=== PATIENT | female | born 1985 | race Caucasian/White ===

== ENCOUNTER 2019-09-20 10:25 | Emergency (ER) | payer BC ==
--- NOTE | 2019-09-20 11:02 | PDOC ---
History of Present Illness - General Chief Complaint: ,Possible Stated Complaint: , SPOTTING Time Seen by Provider: 09/20/19 10:41 History Source: Patient Exam Limitations: No Limitations - History of Present Illness Initial Comments: 09/20/19 10:57 34-year-old currently 12 weeks here today complaining of vaginal spotting. Patient states this is her first today she noticed some dark brownish blood after urinating denies any cramping has had intermittent vague cramps throughout the first trimester but nothing unusual today no nausea today no vomiting no other current complaints of pain no history of previous ectopic or miscarriage patient is currently followed by an old OB mileage clerk at [facility] has had a documented IUP this Past History - Past Medical History Allergies/Adverse Reactions: Allergies Allergy/AdvReac Type Severity Reaction Status Date / Time clindamycin Allergy Unknown Verified 09/20/19 10:43 Iodinated Contrast Media Allergy Unknown Verified 09/20/19 10:43 Sulfa (Sulfonamide Allergy Unknown Verified 09/20/19 10:43 Antibiotics) Home Medications: Ambulatory Orders Dexlansoprazole [Dexilant] 60 mg PO DAILY 09/20/19 Insulin Detemir [Levemir Flextouch] 15 unit SQ HS 09/20/19 Levothyroxine Sodium [Levoxyl] 175 mcg PO DAILY 09/20/19 Metformin HCl [Glucophage] 500 mg PO BID 09/20/19 Vit,Patrick 74/Iron/Folic [ Low Iron Tablet] 1 each PO DAILY 09/20/19 COPD: No Diabetes: Yes (INSULIN DEPENDENT) Thyroid Disease: Yes - Surgical History Appendectomy: Yes (AGE 19) Gastric Stapling: Yes (2017) - Reproductive History Is Patient Now?: Yes (#): 1 Para: 0 - Psycho Social/Smoking Cessation Hx Smoking History: Never smoked Hx Alcohol Use: Yes (NOT DURING THIS ) Drug/Substance Use Hx: No Review of Systems - Review of Systems Constitutional: No: Chills, Diaphoresis, Fever HEENTM: No: Eye Pain Respiratory: No: Cough, Orthopnea Cardiac (ROS): No: Chest Pain, Edema, Irregular Heart Rate ABD/GI: No: Rectal Bleeding, Vomiting : Yes: Other (vaginal spoting). No: Burning, Dysuria, Discharge Musculoskeletal: No: Back Pain Integumentary: No: Bruising All Other Systems: Reviewed and Negative *Physical Exam - Vital Signs Last Vital Signs Temp Pulse Resp BP Pulse Ox 98.7 F 70 18 120/73 100 09/20/19 10:41 09/20/19 10:41 09/20/19 10:41 09/20/19 10:41 09/20/19 10:41 - Physical Exam 09/20/19 11:00 Awake alert no acute distress lungs are clear bilaterally heart is regular without any murmurs rubs or gallops abdomen is soft nontender no CVA tenderness. Extremities are warm well perfused skin is warm and dry no rash neurologic patient is awake alert and oriented x3 ED Treatment Course - LABORATORY CBC & Chemistry Diagram: 09/20/19 10:50 09/20/19 10:50 Medical Decision Making - Medical Decision Making 09/20/19 11:00 34-year-old female G1, P0 12 weeks with vaginal spotting. Differential includes threatened versus incomplete AB versus breakthrough bleeding. Plan transabdominal ultrasound evaluate wellbeing basic labs and blood type for Rh status. Focus transabdominal ultrasound was performed showed a live intrauterine heart rate was noted to be 150 bpm Plan been pending Rh status will DC home follow-up with RAMP SERVICE MAN told nothing per vagina until bleeding stops 09/22/19 07:55 blood type is a positive. Discharge - Discharge Information Problems reviewed: Yes Clinical Impression/Diagnosis: Threatened Condition: Improved Disposition: HOME - Admission No - Follow up/Referral Referrals: Amaris Hankins MD [Primary Care Provider] - Gerardo Wolf MD [Staff Physician] - - Patient Discharge Instructions Patient Printed Discharge Instructions: Threatened Additional Instructions: Please return for any worsening symptoms or concerns. Follow-up with your OB mileage clerk next week call to schedule. Nothing per vagina until the bleeding stops. Your ultrasound today shows that you have a live fetus in the uterus with a normal heart rate - Post Discharge Activity
[2019-09-20 11:16] LABS: BASO % 0.2 % (0-2.0); EOS % 0.7 % (0-4.5); HEMATOCRIT 33.4 % (32.4-45.2); HEMOGLOBIN 10.8 GM/dl (10.7-15.3); LYMPH % 24.2 % (8-40); MCH 24.1 pg (25.7-33.7); MCHC 32.2 g/dl (32.0-36.0); MEAN CELL VOLUME 74.8 fl (80-96); MEAN PLT VOLUME 9.8 fl (7.5-11.1); MONO % 5.4 % (3.8-10.2); NEUT % 69.5 % (42.8-82.8); PLATELET COUNT 280 K/MM3 (134-434); RBC 4.47 M/mm3 (3.60-5.2); RDW 16.7 % (11.6-15.6); WHITE BLOOD COUNT 10.7 K/mm3 (4.0-10.8)
[2019-09-20 11:22] VITALS: BP 120/73; PULSE 70; TEMP 98.7; BMI 40.1
[2019-09-20 11:25] LABS: ADD RBC MORPHOLOGY YES; ALBUMIN 3.4 g/dl (3.4-5.0); BILIRUBIN,TOTAL 0.1 mg/dl (0.2-1); CALCIUM 8.5 mg/dl (8.5-10); CREATININE 0.4 mg/dl (0.55-1.3); POTASSIUM 3.5 mmol/L (3.5-5.1); TOT PROT 6.8 g/dl (6.4-8.2)
[2019-09-20 12:01] LABS: EPITHELIAL CELLS FEW /hpf
[2019-09-20 12:03] LABS: ANISOCYTOSIS 1+
[2019-09-20 12:04] LABS: PLATELET ESTIMATE ADEQUATE
== END 2019-09-20 11:37 | disposition home or self-care (01) ==
LOC: FER 10:25
DX: O26.891 Other specified pregnancy related conditions, first trimester (principal); Z3A.12 12 weeks gestation of pregnancy; O20.0 Threatened abortion; Z88.8 Allergy status to other drugs, medicaments and biological substances; Z88.2 Allergy status to sulfonamides; Z91.041 Radiographic dye allergy status; E11.9 Type 2 diabetes mellitus without complications; E07.9 Disorder of thyroid, unspecified
CPT/HCPCS: 36415; 76815; 80053; 81003; 81015; 85025; 86850; 86900; 86901; 99283-25

== ENCOUNTER 2020-03-26 06:10 | Inpatient (IN) | payer BC ==
[2020-03-26] MEDS ORDERED: morphine SULFATE/PF 0.5 MG/ML (2cc Syringe - QUVA) ONE (08:09)
[2020-03-26] MEDS ORDERED: CITRIC ACID/SODIUM CITRATE 30 ML UNIT-DOSE CUP PO ONE ×2 (08:10)
[2020-03-26] MEDS ORDERED: ELECTROLYTE-148 SOLN 1,000 ML IV SCH (08:15)
--- NOTE | 2020-03-26 08:18 | HP ---
Past Medical History - Admission Chief Complaint: Elective History of Present Illness: 34 yo , @ 39 weeks gestation with Pre-gestational diabetes, is pre op for primary . EDC 04/12/20 She denies any contractions pain nor vaginal bleeding. History Source: Patient Limitations to Obtaining History: No Limitations - Past Medical History ...: 1 ...Para: 0 ...EDC by Sono: 04/02/20 Endocrine: Yes: Diabetes Mellitus Additional Medical History: Obesity - Past Surgical History Past Surgical History: Yes: None Hx Myomectomy: No Hx Transabdominal Cerclage: No - Smoking History Smoking history: Never smoked - Alcohol/Substance Use Hx Alcohol Use: Yes (NOT DURING THIS ) History of Substance Use: reports: None - Social History ADL: Independent History of Recent Travel: No Home Medications - Allergies Allergies/Adverse Reactions: Allergies Allergy/AdvReac Type Severity Reaction Status Date / Time clindamycin Allergy Severe Verified 03/12/20 09:01 Iodinated Contrast Media Allergy Severe Verified 03/12/20 09:01 Sulfa (Sulfonamide Allergy Severe Swelling Verified 03/12/20 09:01 Antibiotics) - Home Medications Home Medications: Ambulatory Orders Dexlansoprazole [Dexilant] 60 mg PO DAILY 09/20/19 Insulin Detemir [Levemir Flextouch] 15 unit SQ HS 09/20/19 Levothyroxine Sodium [Levoxyl] 175 mcg PO DAILY 09/20/19 Metformin HCl [Glucophage] 500 mg PO BID 09/20/19 Vit,Patrick 74/Iron/Folic [ Low Iron Tablet] 1 each PO DAILY 09/20/19 Review of Systems - Review of Systems Constitutional: reports: No Symptoms Neck: reports: No Symptoms Cardiovascular: reports: No Symptoms Respiratory: reports: No Symptoms Gastrointestinal: reports: No Symptoms Genitourinary: reports: No Symptoms Breasts: reports: No Symptoms Reported Musculoskeletal: reports: No Symptoms Integumentary: reports: No Symptoms Neurological: reports: No Symptoms Psychiatric: reports: No Symptoms Pain Intensity: 0 Physical Exam - Maternity Constitutional: Yes: No Distress Eyes: Yes: Conjunctiva Clear Neck: Yes: Supple Cardiovascular: Yes: Regular Rate and Rhythm Lungs: Clear to auscultation Breast(s): Yes: WNL - Abdominal Exam/OB Number of Fetuses: Single Presentation: Vertex Contractions: No - Physical Exam Integumentary: Yes: WNL ...Motor Strength: WNL Psychiatric: Yes: Alert, Oriented Problem List - Problems (1) Obesity Code(s): E66.9 - OBESITY, UNSPECIFIED (2) 39 weeks gestation of Code(s): Z3A.39 - 39 WEEKS GESTATION OF (3) Previous gestational diabetes mellitus, antepartum Code(s): O09.299 - SUPRVSN OF PREG W POOR REPRODCTV OR OBSTET HISTORY, UNSP TRI; Z86.32 - PERSONAL HISTORY OF GESTATIONAL DIABETES Assessment/Plan 39 weeks gestation Pre-Gestational diabetes Pre op for primary Consent signed Anesthesia to see patient
[2020-03-26 08:20] VITALS: BMI 46.5
[2020-03-26] MEDS ORDERED: ceFAZolin SODIUM 1 GM VIAL ONE (08:43)
[2020-03-26] MEDS ORDERED: OXYTOCIN 10 UNITS/ML VIAL ONE (08:53)
[2020-03-26] MEDS ORDERED: METHYLERGONOVINE MALEATE 0.2 MG/1 ML AMP IM PRN (09:39)
--- NOTE | 2020-03-26 09:43 | OP ---
Operative Note - Note: Operative Date: 03/26/20 Pre-Operative Diagnosis: 39 weeks gestation / Breech presentation / Pregestational diabetes Operation: Primary Low Transverse Findings: Baby Girl in Left sacrum anterior Post-Operative Diagnosis: Same as Pre-op Surgeon: Amaris Hankins White Spooler: Lawrence Espinoza Anesthesia: Spinal Specimens Removed: Placenta Estimated Blood Loss (mls): 700
[2020-03-26 09:55] LABS: CORD HCO3 25.8 mmHg (20-29); CORD PCO2 69.9 mmHg (30-78); CORD pH 7.185 (7.14-7.44)
[2020-03-26 10:00] LABS: CORD HCO3 23.8 mmHg (20-29); CORD PCO2 73.9 mmHg (30-78); CORD pH 7.126 (7.14-7.44)
[2020-03-26] MEDS: FERROUS SO4 325 MG TABLET (FP) PO SCH ×2 (10:33→16:31)
[2020-03-26] MEDS: IBUPROFEN 800 MG/8 ML IJ IVPB PRN (11:14)
[2020-03-26] MEDS: PRENATAL VITAMINS W/ FOLIC ACID TABLET (FP) PO SCH (11:16)
[2020-03-26] MEDS ORDERED: IBUPROFEN 800 MG/8 ML IJ IVPB ONE (11:18)
[2020-03-26] MEDS ORDERED: OXYTOCIN 20 UNITS in 0.9% NS 20 UNIT/1,000 ML INFUS.BAG IV ONE (11:50)
[2020-03-26] MEDS ORDERED: ONDANSETRON 4 MG/2 ML VIAL IVPUSH PRN (16:18)
[2020-03-26] MEDS: OXYTOCIN 20 UNITS in 0.9% NS 20 UNIT/1,000 ML INFUS.BAG IV SCH (22:00)
[2020-03-26] MEDS: INSULIN (LEVEMIR) 100 UNITS/ML UNITS SQ SCH (23:35)
[2020-03-27] MEDS: IBUPROFEN 800 MG/8 ML IJ IVPB PRN ×2 (04:41→12:29)
[2020-03-27] MEDS: LEVOTHYROXINE 25 MCG, LEVOTHYROXINE 150 MCG PO SCH (06:39)
[2020-03-27] MEDS ORDERED: LEVOTHYROXINE NA 150 MCG TABLET PO SCH (07:00)
--- NOTE | 2020-03-27 08:02 | PN ---
Post Note - Post Date of Delivery: 03/26/20 Vital Signs: Vital Signs - 24 hr 03/26/20 03/26/20 03/26/20 09:55 10:10 10:25 Temperature 97.7 F Pulse Rate 69 72 72 Respiratory 16 18 16 Rate Blood Pressure 109/61 108/60 120/58 L O2 Sat by Pulse 100 98 98 Oximetry (%) 03/26/20 03/26/20 03/26/20 10:40 16:00 17:00 Temperature 97.7 F Pulse Rate 77 Respiratory 18 20 20 Rate Blood Pressure 110/55 L O2 Sat by Pulse 96 Oximetry (%) 03/26/20 03/26/20 03/26/20 17:23 17:34 18:00 Temperature 98.2 F Pulse Rate 73 Respiratory 18 20 20 Rate Blood Pressure 92/59 L O2 Sat by Pulse 98 Oximetry (%) 03/26/20 03/26/20 03/26/20 19:00 20:00 21:00 Temperature Pulse Rate Respiratory 20 20 20 Rate Blood Pressure O2 Sat by Pulse Oximetry (%) 03/26/20 03/26/20 03/26/20 21:23 22:00 23:00 Temperature 97.9 F Pulse Rate 85 Respiratory 18 20 20 Rate Blood Pressure 111/49 L O2 Sat by Pulse 95 Oximetry (%) 03/27/20 03/27/20 03/27/20 00:00 01:00 02:00 Temperature 98.4 F Pulse Rate 89 Respiratory 20 20 20 Rate Blood Pressure 88/37 L O2 Sat by Pulse 98 Oximetry (%) 03/27/20 03/27/20 03/27/20 03:00 04:00 05:00 Temperature 98.1 F Pulse Rate 83 Respiratory 20 20 18 Rate Blood Pressure 115/44 L O2 Sat by Pulse 95 Oximetry (%) 03/27/20 03/27/20 06:00 07:00 Temperature Pulse Rate Respiratory 20 20 Rate Blood Pressure O2 Sat by Pulse Oximetry (%) Labs: Laboratory Results - last 24 hr 03/26/20 03/26/20 03/26/20 09:10 09:10 11:00 Cord Blood pH 7.185 7.126 L Cord Blood PCO2 69.9 73.9 Cord Blood PO2 < 15.0 < 15.0 Cord Blood HCO3 25.8 23.8 Cord Base Excess -4.400 L -7.100 L POC Glucometer 97 03/26/20 03/26/20 03/26/20 14:36 17:21 22:30 Cord Blood pH Cord Blood PCO2 Cord Blood PO2 Cord Blood HCO3 Cord Base Excess POC Glucometer 80 73 76 03/27/20 03/27/20 01:43 06:29 Cord Blood pH Cord Blood PCO2 Cord Blood PO2 Cord Blood HCO3 Cord Base Excess POC Glucometer 98 71 - Objective Afebrile: Yes Breast: Not engorged Abdomen: Soft, Non-tender Uterus: Fundus firm Vagina: Scant lochia Extremities: Non-tender - Assessment/Plan (1) Status post primary low transverse section Assessment: Other (POD1) Plan: Routine Care
[2020-03-27] MEDS: FERROUS SO4 325 MG TABLET (FP) PO SCH ×2 (08:25→17:47)
[2020-03-27] MEDS: OXYTOCIN 20 UNITS in 0.9% NS 20 UNIT/1,000 ML INFUS.BAG IV SCH ×2 (08:35→09:45)
[2020-03-27 08:54] LABS: BASO % 0.1 % (0-2.0); HEMATOCRIT 25.5 % (32.4-45.2); LYMPH % 16.1 % (8-40); MCH 23.3 pg (25.7-33.7); MCHC 31.2 g/dl (32.0-36.0); MEAN CELL VOLUME 74.8 fl (80-96); MEAN PLT VOLUME 9.7 fl (7.5-11.1); MONO % 8.8 % (3.8-10.2); PLATELET COUNT 165 K/MM3 (134-434); RBC 3.41 M/mm3 (3.60-5.2); RDW 17.8 % (11.6-15.6); WHITE BLOOD COUNT 11.5 K/mm3 (4.0-10.0)
[2020-03-27] MEDS: DEXILANT 60 MG PO SCH (09:01)
[2020-03-27] MEDS: PRENATAL VITAMINS W/ FOLIC ACID TABLET (FP) PO SCH (09:05)
[2020-03-27] MEDS ORDERED: BISACODYL 10 MG SUPP.RECT RC PRN (09:39)
[2020-03-27] MEDS ORDERED: DIPHTH,PERTUSS(ACELL),TET 0.5 ML DISP.SYRIN IM ONE (10:00)
[2020-03-27] MEDS ORDERED: DEXAMETHASONE 4 MG TABLET (FP) PO SCH (10:00)
--- NOTE | 2020-03-27 10:56 | PN ---
Progress Note (short form) - Note Progress Note: Anesthesiologist post op note POD#1 S/P under spinal with duramorph. VSS. Ambulating. Tolerating po. Pain under control, scale 2-3/10. No apparent post anesthesia complications.
--- NOTE | 2020-03-27 13:16 | OP ---
DATE OF OPERATION: 03/26/2020 PREOPERATIVE DIAGNOSIS: Thirty-nine weeks' gestation, pre-gestational diabetes, and breech presentation. POSTOPERATIVE DIAGNOSIS: Thirty-nine weeks' gestation, pre-gestational diabetes, and breech presentation. PROCEDURE: Primary low transverse section. SURGEON: Amaris Hankins MD TIRE ROOM SUPERVISOR: ANN MARIE Mc ANESTHESIA: Spinal. COMPLICATIONS: None. ESTIMATED BLOOD LOSS: 700 mL. DESCRIPTION OF PROCEDURE: Patient was taken to the operating room where spinal anesthesia was administered. Patient was then prepped and draped in proper sterile fashion. A Pfannenstiel skin incision was made and carried down through the underlying layer of fascia. The fascia was incised in the midline and extended laterally. The inferior aspect of the fascial incision was then grasped with a Miriam clamp, elevated, and the rectus muscles dissected off bluntly. Attention was then turned to the superior aspect of the fascial incision, which in a similar fashion was then grasped with a Miriam clamp, elevated, and the rectus muscle dissected off bluntly. The rectus muscle was then in the midline, the peritoneum identified and entered sharply with Metzenbaum scissors. This incision was extended superiorly and inferiorly with good visualization of the bladder. The vesicouterine peritoneum was then grasped with a pickup and entered sharply with the Metzenbaum scissors. This incision was extended laterally and a bladder flap created digitally. Then the bladder blade was inserted. The lower uterine segment was incised using a 10 blade. This incision was extended laterally. The sacrum was presented at the incision with double footling breech. The lower extremities were then delivered, then a dry lap was placed around the hip of the fetus, and the baby was turned on each side to allow delivery of the head. Nose and mouth were suctioned and the cord clamped and cut. The was handed to the waiting business development recruiter. The placenta was removed manually, then the lower uterine segment was repaired using 0 Biosyn in a running locked fashion while the uterus remained inside. A second layer of the same suture was used as a means to provide excellent hemostasis. Then the vesicouterine peritoneum was sutured together. The pelvis was then completely irrigated, and the peritoneum was closed using 2-0 Biosyn, and the fascia was reapproximated using 0 Vicryl in a running fashion, and the skin was closed in subcuticular fashion using 3-0 Vicryl. Patient tolerated procedure well. Patient was then taken to PACU in stable condition. PATHOLOGY: Placenta. Jaun OSUNA/[id number]
[2020-03-27] MEDS: SIMETHICONE 80 MG TAB.CHEW (FP) PO PRN (20:08)
[2020-03-27] MEDS: IBUPROFEN 600 MG TABLET (FP) PO PRN (20:09)
[2020-03-27] MEDS: oxyCODONE HCL 5 MG TABLET PO PRN (20:09)
[2020-03-27] MEDS: INSULIN (LEVEMIR) 100 UNITS/ML UNITS SQ SCH (22:47)
[2020-03-28] MEDS: IBUPROFEN 600 MG TABLET (FP) PO PRN ×4 (06:49→23:57)
[2020-03-28] MEDS: SIMETHICONE 80 MG TAB.CHEW (FP) PO PRN ×3 (06:49→19:26)
[2020-03-28] MEDS: oxyCODONE HCL 5 MG TABLET PO PRN ×4 (06:50→23:57)
[2020-03-28] MEDS: LEVOTHYROXINE 25 MCG, LEVOTHYROXINE 150 MCG PO SCH (06:51)
[2020-03-28] MEDS: FERROUS SO4 325 MG TABLET (FP) PO SCH ×2 (08:25→18:30)
[2020-03-28] MEDS: PRENATAL VITAMINS W/ FOLIC ACID TABLET (FP) PO SCH (10:28)
[2020-03-28] MEDS: DEXILANT 60 MG PO SCH (10:29)
--- NOTE | 2020-03-28 15:36 | PN ---
Post Progress Note - Subjective Subjective: 34 yo Para 1 status post primary Low Transverse , seen and evaluated She c/o incision pain. Post Day: 2 Type of Delivery: Primary C/S Vital Signs: Vital Signs Temperature 97.9 F 03/28/20 09:00 Pulse Rate 86 03/28/20 09:00 Respiratory Rate 20 03/28/20 09:00 Blood Pressure 124/59 L 03/28/20 09:00 O2 Sat by Pulse Oximetry (%) 98 03/27/20 18:07 Breast Exam: Yes: Soft Uterus: Yes: Fundus below umbilicus Incision: Yes: Other (Steri strips in place) Abdomen/GI: Yes: Abdomen soft, Tolerating PO Lochia: Yes: Rubra Lochia, amount: Small Extremities: Yes: Calves non-tender Activity: Ambulating - Labs Labs: CBC WBC 11.5 K/mm3 (4.0-10.0) H 03/27/20 08:02 RBC 3.41 M/mm3 (3.60-5.2) L 03/27/20 08:02 Hgb 8.0 GM/dL (10.7-15.3) L 03/27/20 08:02 Hct 25.5 % (32.4-45.2) L D 03/27/20 08:02 MCV 74.8 fl (80-96) L 03/27/20 08:02 MCH 23.3 pg (25.7-33.7) L 03/27/20 08:02 MCHC 31.2 g/dl (32.0-36.0) L 03/27/20 08:02 RDW 17.8 % (11.6-15.6) H 03/27/20 08:02 Plt Count 165 K/MM3 (134-434) D 03/27/20 08:02 MPV 9.7 fl (7.5-11.1) 03/27/20 08:02 Absolute Neuts (auto) 8.5 K/mm3 (1.5-8.0) H 03/27/20 08:02 Neutrophils % 74.0 % (42.8-82.8) 03/27/20 08:02 Lymphocytes % 16.1 % (8-40) 03/27/20 08:02 Monocytes % 8.8 % (3.8-10.2) 03/27/20 08:02 Eosinophils % 1.0 % (0-4.5) 03/27/20 08:02 Basophils % 0.1 % (0-2.0) 03/27/20 08:02 Nucleated RBC % 0 % (0-0) 03/27/20 08:02 Problem List - Problems (1) Obesity Problems reviewed: Yes Code(s): E66.9 - OBESITY, UNSPECIFIED (2) 39 weeks gestation of Code(s): Z3A.39 - 39 WEEKS GESTATION OF (3) Previous gestational diabetes mellitus, antepartum Code(s): O09.299 - SUPRVSN OF PREG W POOR REPRODCTV OR OBSTET HISTORY, UNSP TRI; Z86.32 - PERSONAL HISTORY OF GESTATIONAL DIABETES Assessment/Plan Status post primary Low Transverse Ambulation Analgesia as needed Continue post op care
[2020-03-28] MEDS: INSULIN (LEVEMIR) 100 UNITS/ML UNITS SQ SCH (22:08)
[2020-03-29] MEDS: LEVOTHYROXINE 25 MCG, LEVOTHYROXINE 150 MCG PO SCH (06:15)
[2020-03-29] MEDS: FERROUS SO4 325 MG TABLET (FP) PO SCH (08:22)
[2020-03-29] MEDS: IBUPROFEN 600 MG TABLET (FP) PO PRN (08:25)
[2020-03-29 08:30] LABS: BASO % 0.4 % (0-2.0); EOS % 1.8 % (0-4.5); HEMATOCRIT 25.2 % (32.4-45.2); LYMPH % 31.5 % (8-40); MCH 23.6 pg (25.7-33.7); MCHC 31.7 g/dl (32.0-36.0); MEAN CELL VOLUME 74.4 fl (80-96); MEAN PLT VOLUME 9.5 fl (7.5-11.1); MONO % 8.5 % (3.8-10.2); NEUT % 57.8 % (42.8-82.8); PLATELET COUNT 194 K/MM3 (134-434); RBC 3.39 M/mm3 (3.60-5.2); WHITE BLOOD COUNT 8.1 K/mm3 (4.0-10.0)
--- NOTE | 2020-03-29 10:35 | DS ---
Physical Exam-MICA MACHINE OPERATOR Vital Signs: Vital Signs Temperature 97.9 F 03/28/20 22:00 Pulse Rate 99 H 03/28/20 22:00 Respiratory Rate 19 03/28/20 22:00 Blood Pressure 132/74 03/28/20 22:00 O2 Sat by Pulse Oximetry (%) 99 03/28/20 22:00 Constitutional: Yes: No Distress Eyes: Yes: Conjunctiva Clear HENT: Yes: Atraumatic Neck: Yes: Supple Cardiovascular: Yes: Regular Rate and Rhythm Respiratory: Yes: Regular Gastrointestinal: Yes: Normal Bowel Sounds Pelvis: Yes: WNL External Genitalia: Yes: Normal Extremities: Yes: WNL Wound/Incision: Yes: Steri Strips (in place) Neurological: Yes: Alert, Oriented ...Motor Strength: WNL Psychiatric: Yes: Alert, Oriented Labs: CBC, BMP 03/29/20 07:25 Delivery - Delivery Type of Anesthesia: Spinal Episiotomy/Laceration: None EBL (cc): 700 Delivery, Single - Stages of Labor Date of Delivery: 03/26/20 Time of Delivery: 08:56 Time Placenta Delivered: 08:57 - Condition of Infant Checkout Operator/Kettle Firer Present: Yes Name: Sully Borrero Gender: Female Weight: 8 lb 12 oz Position: Left, SA Total Hours ROM (Hrs/Mins): 2 MIN - 1 Minute Total Score: 6 5 Minutes Total Score: 9 - [place] Feeding Plan Initial Plan: Elected not to breastfeed exclusively throughout hospitalization Discharge Summary Problems reviewed: Yes Reason For Visit: SCHEDULED Current Active Problems 39 weeks gestation of (Acute) Obesity (Acute) Previous gestational diabetes mellitus, antepartum (Acute) Status post primary low transverse section (Acute) Procedures: Principal: Primary Low Transverse Hospital Course: Routine post op care Health Concerns: Thromboembolic event Plan of Treatment: Ambulation Analgesia as needed F/U with MD in one week Goals: Resume regular activities in 4 weeks Condition: Good - Instructions Diet, Activity, Other Instructions: Diabetic diet No driving, no lifting x 4 weeks F/U with MD in one week Disposition: HOME - Home Medications Comprehensive Discharge Medication List: Ambulatory Orders Dexlansoprazole [Dexilant] 60 mg PO DAILY 09/20/19 Insulin Detemir [Levemir Flextouch] 40 unit SQ HS 09/20/19 Levothyroxine Sodium [Levoxyl] 175 mcg PO DAILY 09/20/19 Metformin HCl [Glucophage] 500 mg PO BID 09/20/19 Vit,Patrick 74/Iron/Folic [ Low Iron Tablet] 1 each PO DAILY 09/20/19
[2020-03-29] MEDS: DEXILANT 60 MG PO SCH (10:37)
[2020-03-29] MEDS: PRENATAL VITAMINS W/ FOLIC ACID TABLET (FP) PO SCH (10:38)
[2020-03-29 11:57] VITALS: BP 130/73; PULSE 82; TEMP 98.2
--- NOTE | 2020-04-05 17:46 | PATH ---
Surgical Pathology Report Patient Name: AILEEN PRABHAKAR Med. Rec. #: [id number] /Age/Gender: 1985 (Age: 34) / F Account: [id number] Location: [facility] OBS/RAW PRODUCTS DIRECTOR Taken: 03/26/2020 Received: 03/29/2020 Reported: 04/05/2020 Physicians: Amaris Hankins M.D. Specimen(s) Received PLACENTA Clinical History Type 2 diabetes Previous surgery: appendectomy, gastric sleeve 2015 Final Diagnosis PLACENTA: THIRD TRIMESTER PLACENTA WITH FOCAL SUBCHORIONIC FIBRIN DEPOSITION. TRIVASCULAR CORD. MEMBRANES WITH NO DIAGNOSTIC ABNORMALITIES. Electronically Signed Horacio Louis M.D. Gross Description The specimen is received fresh labeled placenta and is a 611 gram, 26.5 x17 x 1.5cm. placenta with attached membranes and umbilical cord. The attached membranes are glistening, translucent, and insert marginally. The umbilical cord measures 32 cm. in length and averages 1.3 cm. in diameter. The cord inserts eccentrically, 4 centimeter to the nearest margin. No true knots or strictures are identified. Cut surface of the umbilical cord reveals 3 vessels. Sectioning reveals red-brown, spongy parenchyma. No lesions are identified. Behavioral Services Tech sections are submitted in three cassettes as follows: 1- membrane rolls and umbilical cord; 2-3- full thickness sections of placenta KWS/03/30/2020 sulki03/30/2020
== END 2020-03-29 13:10 | disposition home or self-care (01) | DRG 787 ==
LOC: JLDR 06:10 → J3W 13:45
PROVIDERS: ADMIT Obstetrics & Gynecology; ATTEND Obstetrics & Gynecology
PROC: 10D00Z1 Extraction of Products of Conception, Low, Open Approach (ICD-10-PCS; principal; 2020-03-26)
DX: O82 Encounter for cesarean delivery without indication (principal); O24.113 Pre-existing type 2 diabetes mellitus, in pregnancy, third trimester; Z3A.39 39 weeks gestation of pregnancy; Z37.0 Single live birth; Z79.4 Long term (current) use of insulin; O32.8XX0 Maternal care for other malpresentation of fetus, not applicable or unspecified; O99.214 Obesity complicating childbirth; E66.01 Morbid (severe) obesity due to excess calories; O99.284 Endocrine, nutritional and metabolic diseases complicating childbirth; E03.9 Hypothyroidism, unspecified; Z86.19 Personal history of other infectious and parasitic diseases; Z88.1 Allergy status to other antibiotic agents; Z88.2 Allergy status to sulfonamides; Z91.041 Radiographic dye allergy status
CPT/HCPCS: 36415; 36600; 82803; 82962; 85025; 88307-TC; 90715

== ENCOUNTER 2022-02-18 11:17 | Emergency (ER) | payer BC ==
[2022-02-18 11:32] VITALS: BP 111/72; PULSE 82; RESP 18; TEMP 98.1; BMI 42.3
[2022-02-18] MEDS ORDERED: ACETAMINOPHEN 1000 MG/100 ML BAG IVPB ONE (13:01)
[2022-02-18] MEDS ORDERED: ONDANSETRON 4 MG/2 ML VIAL IVPUSH ONE (13:01)
[2022-02-18] MEDS ORDERED: SODIUM CHLORIDE 1,000 ML IV STA (13:01)
[2022-02-18] MEDS ORDERED: ONDANSETRON 4 MG/2 ML VIAL ONE (13:47)
[2022-02-18] MEDS ORDERED: ACETAMINOPHEN INJECTION 100 ML IVPB ONE (13:47)
[2022-02-18 14:24] LABS: BASO % 0.4 % (0-2.0); EOS % 0.3 % (0-4.5); HEMATOCRIT 38.8 % (32.4-45.2); HEMOGLOBIN 12.5 GM/dL (10.7-15.3); LYMPH % 12.2 % (8-40); MCH 24.2 pg (25.7-33.7); MCHC 32.2 g/dl (32.0-36.0); MEAN CELL VOLUME 75.1 fl (80-96); MEAN PLT VOLUME 9.2 fl (7.5-11.1); MONO % 5.8 % (3.8-10.2); NEUT % 81.3 % (42.8-82.8); PLATELET COUNT 262 10^3/uL (134-434); RBC 5.17 M/mm3 (3.60-5.2); RDW 16.4 % (11.6-15.6); WHITE BLOOD COUNT 15.5 K/mm3 (4.0-10.0)
[2022-02-18 14:29] LABS: EPI CELLS 10 /uL (0-25.1); HYALINE CASTS 1 /uL (0-3.1); URINE APPEARANCE CLEAR; URINE BACTERIA 130 /uL (0-1359); URINE BILIRUBIN NEGATIVE (NEGATIVE); URINE COLOR YELLOW; URINE GLUCOSE (UA) NEGATIVE (NEGATIVE); URINE KETONE TRACE (NEGATIVE); URINE LEUK ESTERASE NEGATIVE (NEGATIVE); URINE NITRITE NEGATIVE (NEGATIVE); URINE PROTEIN NEGATIVE (NEGATIVE); URINE RBC 14 /uL (0-23.9); URINE UROBILINOGEN 0.2 mg/dL (0.2-1.0); URINE WBC 5 /uL (0-25.8)
[2022-02-18 14:30] LABS: HCG,QUALITATIVE URINE Negative
[2022-02-18 14:49] LABS: CALCIUM 9.3 mg/dL (8.5-10.1)
[2022-02-18 14:50] LABS: ALBUMIN 3.7 g/dl (3.4-5.0); BLOOD UREA NITROGEN 8.6 mg/dL (7-18)
[2022-02-18 14:52] LABS: CREATININE 0.5 mg/dL (0.55-1.3)
[2022-02-18 14:54] LABS: BILIRUBIN,TOTAL 0.3 mg/dL (0.2-1)
== END 2022-02-18 20:50 | disposition home or self-care (01) ==
LOC: JER 11:17
PROC: 3E0333Z Introduction of Anti-inflammatory into Peripheral Vein, Percutaneous Approach (ICD-10-PCS; principal; 2022-02-18)
PROC: 3E033GC Introduction of Other Therapeutic Substance into Peripheral Vein, Percutaneous Approach (ICD-10-PCS; 2022-02-18)
PROC: 3E0337Z Introduction of Electrolytic and Water Balance Substance into Peripheral Vein, Percutaneous Approach (ICD-10-PCS; 2022-02-18)
DX: K52.9 Noninfective gastroenteritis and colitis, unspecified (principal)
CPT/HCPCS: 36415; 74176-TC; 80053; 81003; 83690; 84703; 85025; 87086; 99284-25